=== PATIENT | male | born 1995 | race Two or more races ===

== ENCOUNTER 2022-07-21 13:17 | Emergency (ER) | payer SELFPAY ==
[~2022-07-21] VITALS: Ht 160 cm; Wt 59.0 kg
[2022-07-21] MEDS ORDERED: diphenhydrAMINE HCL 50 MG/ML VIAL IM ONE (13:30)
[2022-07-21] MEDS ORDERED: LORAZEPAM INJ 2 MG/ML VIAL IM ONE (13:30)
[2022-07-21] MEDS ORDERED: HALOPERIDOL LACTATE INJ 5 MG/ML VIAL IM ONE (13:30)
[2022-07-21] MEDS ORDERED: diphenhydrAMINE HCL 50 MG/ML VIAL ONE (13:31)
[2022-07-21] MEDS ORDERED: LORAZEPAM INJ 2 MG/ML VIAL ONE (13:32)
[2022-07-21] MEDS ORDERED: HALOPERIDOL LACTATE INJ 5 MG/ML VIAL ONE (13:32)
[2022-07-21 13:46] LABS: BASOPHILS % (AUTO) 0.3 % (0.0-2.0); EOSINOPHILS % (AUTO) 0.9 % (0.0-6.0); HEMATOCRIT 41 % (39-51); LYMPHOCYTES # (AUTO) 1.5 K/uL (0.8-4.8); LYMPHOCYTES % (AUTO) 17.3 % (20.0-44.0); MEAN CORPUSCULAR HGB CONC 34 g/dl (31.0-36.0); MEAN CORPUSCULAR VOLUME 94 fL (80-96); MONOCYTES # (AUTO) 1.2 K/uL (0.1-1.30); MONOCYTES % (AUTO) 13.6 % (2.0-12.0); NEUTROPHILS # (AUTO) 5.9 K/uL (1.8-8.9); NEUTROPHILS % (AUTO) 67.9 % (43.0-81.0); PLATELET COUNT (AUTO) 265 K/uL (150-450); WHITE BLOOD COUNT (AUTO) 8.6 K/uL (4.3-11.0)
[2022-07-21 14:01] LABS: CARBON DIOXIDE 25 mmol/L (21-32); CHLORIDE 104 mmol/L (98-107); CREATININE 0.8 mg/dL (0.6-1.3); GLUCOSE 104 mg/dL (74-106); POTASSIUM 3.4 mmol/L (3.5-5.1); SODIUM SERUM 139 mmol/L (136-145); UREA NITROGEN, BLOOD 16 mg/dL (7-18)
[2022-07-21 14:07] LABS: ACETAMINOPHEN 0 ug/ml (10-30); ALANINE AMINOTRANSFERASE 32 U/L (12-78); ALBUMIN 4.2 g/dL (3.4-5.0); ALCOHOL, BLOOD < 3 mg/dL (0-0); ALKALINE PHOSPHATASE 72 U/L (46-116); ASPARTATE AMINOTRANSFERASE 29 U/L (15-37); BILIRUBIN,DIRECT 0.1 mg/dL (0.0-0.2); BILIRUBIN,TOTAL 0.4 mg/dL (0.2-1.0); TOTAL PROTEIN, SERUM 7.3 g/dL (6.4-8.2)
--- NOTE | 2022-07-21 14:53 | NUR ---
VS assessed: WNL 16 resps, 100% sp02 on room air, 118/77 BP, 0 pain scale, 60 bpm
[2022-07-21 16:55] LABS: BILIRUBIN,URINE NEGATIVE (NEGATIVE); COLOR,URINE YELLOW (YELLOW); LEUKOCYTE ESTERASE ,URINE NEGATIVE (NEGATIVE); NITRITE, URINE NEGATIVE (NEGATIVE); PROTEIN,URINE NEGATIVE (NEGATIVE); UGLUCOSE NEGATIVE (NEGATIVE); UROBILINOGEN,URINE 0.2 EU/dL (0.2)
[2022-07-21 17:10] LABS: BACTERIA,URINE None seen /HPF (None Seen); RBC,URINE 0-2 /HPF (0-2); SQUAMOUS EPITHELIAL CELL,UR 0-2 /HPF (None Seen); WBC,URINE 0-2 /HPF (0-3)
--- NOTE | 2022-07-21 18:42 | NUR ---
COVID TEST COLLECTED AND SENT
--- NOTE | 2022-07-21 19:05 | NUR ---
PT TOLERATING R/A WELL WITH NO RESP DISTRESS. VSS. NO AGGITATION NOTED AT THIS TIME.
[2022-07-22 04:36] VITALS: BP 127/71
--- NOTE | 2022-07-22 05:00 | NUR ---
PT IS AWAKE. SHOULDER SAWYER, QIAN, PAGED FOR PSYCH EVAL.
--- NOTE | 2022-07-22 06:15 | NUR ---
QIAN CRISIS TEAM AT PT'S BEDSIDE FOR EVAL
--- NOTE | 2022-07-22 09:10 | NUR ---
PT WAS LAST SEEN IN THE FRONT RESTROOM OF THE ER, AMBULATORY W/ STEADY GAIT. AFTER 10 MINUTES, PT WAS CHECKED INSIDE THE RESTROOM BUT WAS NOT SEEN. SECURITY WAS CALLED TO CHECK THE PREMISES, UNABLE TO FIND PT. PT WAS NOT ON A HOLD.
--- NOTE | 2022-07-22 09:15 | NUR ---
Patient eloped from facility. ER MD notified.
== END 2022-07-22 10:45 | disposition left against medical advice (07) ==
LOC: ER 13:25
DX: F23 Brief psychotic disorder (principal); F12.10 Cannabis abuse, uncomplicated; Z59.01 Sheltered homelessness; F20.9 Schizophrenia, unspecified; F19.10 Other psychoactive substance abuse, uncomplicated; Z20.822 Contact with and (suspected) exposure to COVID-19
CPT/HCPCS: 99291; 96372; 85025; 80076; 81001; 80048; 36415; 87426; 80143; 80320; 80307; J2060; J1200; J1630; C9803; G0480